=== PATIENT | male | born 1955 | race Caucasian/White ===

== ENCOUNTER 2017-12-14 06:46 | Day surgery (SDC) | payer OTHER ==
[~2017-12-14] VITALS: Ht 170.2 cm; Wt 69.9 kg
[2017-12-14] MEDS ORDERED: BUPIVACAINE-MPF 0.25% 30 ML VIAL INJ ONE (07:13)
[2017-12-14] MEDS ORDERED: ceFAZolin 1,000 MG VIAL ONE (07:13)
[2017-12-14] MEDS ORDERED: CEFAZOLIN SODIUM 1 GM/D5W PM 50 ML IV SCH (07:20)
[2017-12-14] MEDS ORDERED: ONDANSETRON 4 MG/2 ML VIAL ONE (07:35)
[2017-12-14] MEDS ORDERED: SEVOFLURANE 250 ML BTL INH ONE (07:35)
[2017-12-14] MEDS ORDERED: SUCCINYLCHOLINE CHLORIDE 200 MG/10 ML VIAL IVP ONE (07:35)
[2017-12-14] MEDS ORDERED: DEXAMETHASONE 4 MG/ML VIAL ONE (07:35)
[2017-12-14] MEDS ORDERED: PROPOFOL 200 MG/20 ML VIAL IV ONE (07:35)
[2017-12-14] MEDS ORDERED: MIDAZOLAM 2 MG/2 ML VIAL ONE (07:41)
[2017-12-14] MEDS ORDERED: fentaNYL 0.05 MG/ML VIAL ONE (07:42)
[2017-12-14] MEDS ORDERED: MEPERIDINE 50 MG/ML SYR ONE (07:42)
[2017-12-14] MEDS ORDERED: LACTATED RINGERS 1,000 ML IV SCH (08:12)
[2017-12-14] MEDS ORDERED: diphenhydrAMINE 50 MG/ML VIAL IVP PRN (08:15)
[2017-12-14] MEDS ORDERED: HYDROmorphone 1 MG/ML AMP IVP PRN ×2 (08:15→09:20)
[2017-12-14] MEDS ORDERED: MEPERIDINE 25 MG/ML SYR IVP PRN (08:15)
[2017-12-14] MEDS ORDERED: ONDANSETRON 4 MG/2 ML VIAL IVP PRN (08:15)
[2017-12-14] MEDS ORDERED: ONDANSETRON 4 MG/2 ML VIAL IV PRN (09:20)
[2017-12-14] MEDS ORDERED: MORPHINE SULFATE 4 MG/ML SYR IV PRN (09:20)
[2017-12-14] MEDS ORDERED: MORPHINE SULFATE 2 MG/ML SYR IVP PRN (09:20)
[2017-12-14] MEDS ORDERED: HYDROcodone/APAP 5/325 MG 1 TAB TAB PO PRN (09:20)
== END 2017-12-14 10:50 | disposition home or self-care (01) ==
LOC: MDS 06:46 → MMU 06:47 → MDS 10:50
PROVIDERS: ATTEND Surgery
DX: K40.90 Unilateral inguinal hernia, without obstruction or gangrene, not specified as recurrent (principal); Z90.49 Acquired absence of other specified parts of digestive tract
CPT/HCPCS: 49505; 71045; 93005; C1781; J0330; J0690; J1100; J2250; J2405; J2704; J3010; J3490; J7120; J2175